=== PATIENT | male | born 1965 | race Caucasian/White ===

== ENCOUNTER → 2019-07-04 | Outpatient (CLI) | payer OTHER ==
[~2019-07-04] MED LIST: ALPR0.25 PO; HYDR-3240 PO; LISI-167 PO; OMEP20CA9; PANT20TA2; PANT20TA2 PO; PSEU30TA17; SENN8.6T12 PO; SERT50TA PO
== END | disposition home or self-care (01) ==
LOC: CARD 08:00
PROVIDERS: ATTEND Internal Medicine
DX: G40.89 Other seizures (principal)
CPT/HCPCS: 95819